=== PATIENT | female | born 1985 | race Two or more races ===

== ENCOUNTER 2018-01-19 23:41 | Emergency (ER) | payer OTHER ==
--- NOTE | 2018-01-20 02:31 | ED Physician Documentation ---
PD HPI HEAD INJURY - Stated complaint Stated Complaint: HEAD INJURY/GLF - Chief complaint Chief Complaint: Trauma Hd/Nk - History obtained from History obtained from: Patient - History of Present Illness Mechanism of head injury: Blow Where head injury occurred: Other (judaism) Timing - onset: How many days ago (3-4) Pain level now: 6 Location of injury: Top Quality of pain: Pain, Throbbing Associated symptoms: Other (right shoulder (posteriorly) pain). No: LOC, Neck pain Contributing factors: No: Anticoagulated, Intoxicated Similar symptoms before: Has not had sx before Recently seen: Not recently seen - Additional information Additional information: complains of headache due to head injury sustained 3 to 4 days ago while at the [facility]. Patient fell to the ground, not sure what caused her to fall, but she did not sustain the head injury until she then went to stand up. She was not aware there was a or shelf above her head at that point, and when she went to stand up, she struck the top of her head on this ledge. Denies loss of consciousness, complains of headache. Review of Systems Eyes: reports: Reviewed and negative Ears: reports: Reviewed and negative Musculoskeletal: denies: Neck pain, Back pain Neurologic: reports: Headache, Head injury. 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 - Present Medications Home Medications: Ambulatory Orders Medication Instructions Recorded Confirmed HYDROcod/ACETAM 5/325 [[place] 5/325] 1 - 2 ea PO Q6H PRN #15 tablet 01/20/18 Metformin HCl 1 tab PO BID 01/20/18 01/20/18 - Allergies Allergies/Adverse Reactions: Allergies Allergy/AdvReac Type Severity Reaction Status Date / Time No Known Drug Allergies Allergy Verified 01/19/18 23:50 - Social History Does the pt smoke?: No Smoking Status: Never smoker Does the pt drink ETOH?: Yes Does the pt have substance abuse?: No - Immunizations Immunizations are current?: Yes - POLST Patient has POLST: No PD ED PE NORMAL - Vitals Vital signs reviewed: Yes - General General: Alert and oriented X 3, No acute distress, Well developed/nourished - HEENT HEENT: PERRL, EOMI - Neck Neck: Supple, no meningeal sign, No bony TTP - Cardiac Cardiac: RRR, No murmur - Extremities Extremities: No deformity, No tenderness to palpate, Normal ROM s pain - Neuro Neuro: Alert and oriented X 3, 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, No motor deficit, No sensory deficit, Normal speech Eye Opening: Spontaneous Motor: Obeys Commands Verbal: Oriented GCS Score: 15 - Free text exam Free text exam: nontender scalp, no lacerations or abrasions Results - Vitals Vitals: Oxygen O2 Source Room air - Rads (name of study) CT head Radiology: Prelim report reviewed, See rad report PD MEDICAL DECISION MAKING - ED course Complexity details: reviewed results, re-evaluated patient, considered differential, d/w patient - Sepsis Event Vital Signs: Oxygen O2 Source Room air Departure - Departure Disposition: 01 Home, Self Care Clinical Impression: Head injury Condition: Good Instructions: ED Head Injury Closed Prescriptions: HYDROcod/ACETAM 5/325 [[place] 5/325] 1 - 2 ea PO Q6H PRN #15 tablet PRN Reason: Pain Discharge Date/Time: 01/20/18 05:10
--- NOTE | 2018-01-20 04:22 | CT Report ---
Reason: head injury, headache Procedure Date: 01/20/2018 Accession Number: [id number] / [id number] Procedure: CT - Head W/O CPT Code: FULL RESULT: EXAM: CT HEAD EXAM DATE: 01/20/2018 03:39 AM. CLINICAL HISTORY: Head injury, headache. COMPARISON: None. TECHNIQUE: Multiaxial CT images were obtained from the foramen magnum to the vertex. Reformats: Coronal. IV contrast: None. In accordance with CT protocol optimization, one or more of the following dose reduction techniques were utilized for this exam: automated exposure control, adjustment of mA and/or KV based on patient size, or use of iterative reconstructive technique. FINDINGS: Parenchyma: No intraparenchymal hemorrhage. No evidence of mass, midline shift, or CT findings of infarction. Fernández-white differentiation is distinct. Extraaxial Spaces: Normal for age. No subdural or epidural collections identified. Ventricles: Normal in size and position. Sinuses and Orbits: A moderate-sized mucous retention cyst is present in the right maxillary sinus. The orbits and mastoid sinuses are unremarkable. Bones: No evidence of fracture or calvarial defect. IMPRESSION: No acute intracranial process. RADIA
[2018-01-20 04:35] VITALS: BP 114/74
== END 2018-01-20 05:10 | disposition home or self-care (01) ==
LOC: ED 23:41
DX: S09.90XA Unspecified injury of head, initial encounter (principal); W18.30XA Fall on same level, unspecified, initial encounter; Y92.22 Religious institution as the place of occurrence of the external cause
CPT/HCPCS: 70450; 99283

== ENCOUNTER 2018-07-25 17:27 | Emergency (ER) | payer OTHER ==
[2018-07-25 18:07] LABS: GLUCOSE, URINE (UA) NEGATIVE (NEGATIVE); KETONES,URINE (UA) >=80 mg/dL (NEGATIVE); LEUKOCYTE ESTERASE, URINE MODERATE (NEGATIVE); NITRITE,URINE NEGATIVE (NEGATIVE); OCCULT BLOOD,URINE LARGE (NEGATIVE); PH,URINE 6.5 PH (5.0-7.5); PROTEIN,URINE 30 mg/dL (NEGATIVE); UROBILINOGEN,URINE 2 E.U./dL (NORMAL)
[2018-07-25 18:09] LABS: CLARITY,URINE HAZY (CLEAR)
[2018-07-25 18:18] LABS: BACTERIA,URINE Rare /HPF (None Seen); BILIRUBIN,URINE NEGATIVE (NEGATIVE); ICTOTEST,URINE NEGATIVE; SQUAMOUS EPITHELIAL CELL,UR MOD Squamous (<= Few)
[2018-07-25] MEDS ORDERED: cefTRIAXone 1 GM VIAL IM STA (20:25)
[2018-07-25] MEDS ORDERED: LIDOCAINE 1% 2 ML VIAL MC ONE (20:25)
--- NOTE | 2018-07-25 20:31 | ED Physician Documentation ---
PD HPI FEMALE - Stated complaint Stated Complaint: FEMALE PX - Chief complaint Chief Complaint: UTI - History obtained from History obtained from: Patient - History of Present Illness Timing - onset: How many days ago (3) Timing - duration: Days (3) Timing - details: Gradual onset Pain level max: 3 Pain level max: 3 Severity Comments: mild Associated symptoms: Back pain Review of Systems Ten Systems: 10 systems reviewed and negative Constitutional: reports: Reviewed and negative Eyes: reports: Reviewed and negative Ears: reports: Reviewed and negative Nose: reports: Reviewed and negative Throat: reports: Reviewed and negative Cardiac: reports: Reviewed and negative Respiratory: reports: Reviewed and negative GI: reports: Reviewed and negative : reports: Reviewed and negative Skin: reports: Reviewed and negative Musculoskeletal: reports: Reviewed and negative Neurologic: reports: Reviewed and negative Psychiatric: reports: Reviewed and negative Endocrine: reports: Reviewed and negative Immunocompromised: reports: Reviewed and negative PD PAST MEDICAL HISTORY - Past Medical History Past Medical History: Yes Cardiovascular: None Respiratory: None Neuro: None Endocrine/Autoimmune: None GI: None OUTREACH WORKER: Other : None HEENT: None Psych: Depression, Bipolar disorder Musculoskeletal: None Derm: None Other Past Medical History: polycystic ovarian syndrome - Past Surgical History 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 Other past surgical history: Reviewed and not pertinent - Present Medications Home Medications: Ambulatory Orders Medication Instructions Recorded Confirmed HYDROcod/ACETAM 5/325 [[place] 5/325] 1 - 2 ea PO Q6H PRN #15 tablet 01/20/18 Metformin HCl 1 tab PO BID 01/20/18 01/20/18 Cefdinir 300 mg PO BID 7 Days #14 capsule 07/25/18 Sulfamethoxazole/Trimethoprim 1 each PO 07/25/18 07/25/18 [Bactrim 400-80 mg Tablet] - Allergies Allergies/Adverse Reactions: Allergies Allergy/AdvReac Type Severity Reaction Status Date / Time No Known Drug Allergies Allergy Verified 07/25/18 17:42 - Living Situation Living Situation: reports: With family Living Arrangement: reports: At home - Social History Does the pt smoke?: No Smoking Status: Never smoker Does the pt drink ETOH?: Yes ETOH Use: Wine Does the pt have substance abuse?: No - Family History Family history: reports: Other (Reviewed and not pertinent) - Immunizations Immunizations are current?: Yes - POLST Patient has POLST: No PD ED PE NORMAL - Vitals Vital signs reviewed: Yes - General General: Alert and oriented X 3, No acute distress - HEENT HEENT: PERRL - Neck Neck: Supple, no meningeal sign - Cardiac Cardiac: RRR, No murmur - Respiratory Respiratory: Clear bilaterally - Abdomen Abdomen: Normal bowel sounds, Soft, Non tender, Non distended - Derm Derm: Warm and dry - Extremities Extremities: No deformity - Neuro Neuro: Alert and oriented X 3 - Psych Psych: Normal mood, Normal affect Results - Vitals Vitals: Vital Signs - 24 hr 07/25/18 17:40 Temperature 36.6 C Heart Rate 113 H Respiratory 20 Rate Blood Pressure 129/70 O2 Saturation 100 Oxygen O2 Source Room air - Labs Labs: Laboratory Tests 07/25/18 17:55 Urine Color DARK YELLOW Urine Clarity HAZY Urine pH 6.5 Ur Specific Stephan 1.020 Urine Protein 30 H Urine Glucose (UA) NEGATIVE Urine Ketones >=80 H Urine Occult Blood LARGE H Urine Nitrite NEGATIVE Urine Bilirubin NEGATIVE Urine Urobilinogen 2 H Ur Leukocyte Esterase MODERATE H Urine RBC 11-25 H Urine WBC 11-25 H Ur Squamous Epith Cells MOD Squamous H Urine Bacteria Rare Ur Microscopic Review INDICATED Urine Culture Comments NOT INDICATED PD MEDICAL DECISION MAKING - ED course Complexity details: reviewed results, re-evaluated patient, considered different ial, d/w patient ED course: 33 YO female w dysuria not improving w bactrim. benign exam. Given dose of rocephin and discharged on cefdinir Departure - Departure Disposition: 01 Home, Self Care Clinical Impression: Acute cystitis Qualifiers: Hematuria presence: with hematuria Qualified Code(s): N30.01 - Acute cystitis with hematuria Condition: Good Instructions: ED UTI Cystitis Female Follow-Up: Your, PCP [Other] Prescriptions: Cefdinir 300 mg PO BID 7 Days #14 capsule
[2018-07-25 20:44] VITALS: BP 117/72
[2018-07-25] MEDS ORDERED: PHENAZOPYRIDINE 100 MG TABLETS (Prepack) PO SCH (22:00)
== END 2018-07-25 20:51 | disposition home or self-care (01) ==
LOC: ED 17:27
DX: N30.01 Acute cystitis with hematuria (principal); E28.2 Polycystic ovarian syndrome
CPT/HCPCS: 81001; 81003; 87086; 96372; 99283